=== PATIENT | female | born 1990 | race Two or more races ===

== ENCOUNTER → 2024-01-21 06:28 | Day surgery (SDC) | payer OTHER, SELFPAY | LOC: GI 06:28 | PROVIDERS: ATTENDING PHYSICIAN Internal Medicine | DX: Z12.11 Encounter for screening for malignant neoplasm of colon (principal); K62.1 Rectal polyp; Z83.710 Family history of adenomatous and serrated polyps | CPT/HCPCS: 45380; 88305 ==